=== PATIENT | female | born 1950 | race Caucasian/White ===

== ENCOUNTER 2018-04-18 16:36 | Inpatient (IN) ==
[2018-04-18] MEDS: *HR* OxyCODONE Immed Rel 5 MG TABLET PO PRN (21:48)
[2018-04-19] MEDS ORDERED: Dextrose Gel 15 GM/37.5 ML TUBE PO PRN ×2 (02:06)
[2018-04-19] MEDS ORDERED: *HR* Dextrose 50 % in Water (Syg) 50 ML SYRINGE IVP PRN (02:06)
[2018-04-19] MEDS ORDERED: D5% in Water 1,000 ML IVC PRN (02:06)
[2018-04-19] MEDS: Insulin LISPRO 300 UNITS/3 ML VIAL SQ SCH ×4 (08:47→21:06)
[2018-04-19] MEDS: Venlafaxine XR (24 HR) 150 MG CAP.ER.24H PO SCH (08:48)
[2018-04-19] MEDS: levoFLOXacin 500 MG TABLET PO SCH (08:48)
[2018-04-19] MEDS: (Linagliptin [Tradjenta] 5 MG) PO SCH (08:49)
--- NOTE | 2018-04-19 12:07 | Internal Med History&Physical ---
Date of Encounter: 04/19/18 Time of Encounter: 11:30 Assessment and Plan (1) Pneumonia Current visit: No Status: Acute CT of chest 04/12/2018 showed focal airspace opacification in the right upper lobe and in dependent portion of lower lobes. She was discharged to swing bed on Augmentin but claims she has penicillin allergy. Will change her to Levaquin and give lactobacillus. Qualifiers: Pneumonia type: due to unspecified organism Laterality: unspecified laterality Lung location: lower lobe of lung Qualified Code(s): J18.1 - Lobar pneumonia, unspecified organism (2) Hypothyroidism Current visit: Yes Status: Chronic TSH was normal at 0.844 on 04/12/2018. Continue present dose Synthroid. Qualifiers: Hypothyroidism type: unspecified Qualified Code(s): E03.9 - Hypothyroidism , unspecified (3) Diabetes Current visit: No Status: Chronic Hemoglobin A1c was 8.1% on 04/13/2018. Continue Levemir/Basaglar, Tradjenta, and Accu-Cheks with SSI. Qualifiers: Diabetes mellitus type: type 2 Diabetes mellitus keno terminal operator insulin use: without keno terminal operator use Diabetes mellitus complication status: with unspecified complications Qualified Code(s): E11.8 - Type 2 diabetes mellitus with unspecified complications (4) Rhabdomyolysis Current visit: No Status: Acute Resolving. Will not workup or treatment further. Qualifiers: Rhabdomyolysis type: non-traumatic Qualified Code(s): M62.82 - Rhabdomyolysis (5) HTN (hypertension) Current visit: No Status: Chronic Continue Cozaar. Qualifiers: Hypertension type: essential hypertension Qualified Code(s): I10 - Essential (primary) hypertension (6) Depression Current visit: No Status: Chronic Continue Effexor. Qualifiers: Depression Type: unspecified Qualified Code(s): F32.9 - Major depressive disorder, single episode, unspecified (7) Anemia Current visit: Yes Status: Acute Will order anemia testing in a.m. Qualifiers: Anemia type: unspecified type Qualified Code(s): D64.9 - Anemia, unspecified Internal Medicine - H&P: HPI Chief complaint: Pneumonia Admitted From: Hospital to Hospital Transfer Plans for Post Hospital Care: Home History of present illness: Ms. Rachel is a 67 year old female who was hospitalized at [facility] April 12 after presenting with altered mental status. Etiology was not determined with certainty but she had evidence of sepsis and was treated with a multidrug regimen for pneumonia. Blood and urine cultures returned negative. She was given doxycycline for 5 days after a tick bite was reported. She had evidence of rhabdomyolysis with CK improvement from 7377 on April 14 to 735 on day of discharge. Renal indices remain stable. She was discharged to [facility] swing bed for ongoing care needs prior to discharge home. Past Med Surg Social Fam HX - Past Medical History Medical history: diabetes, hypertension, thyroid disease Additional medical history: TIAs Psychiatric history: anxiety, depression - Past Surgical History Surgical History: appendectomy, cholecystectomy Additional surgical history: tubal, back surgery - Social History Smoking Status: Former smoker Smokeless Tobacco Status: No Alcohol use: occasionally Drug use: opiates, other - Family History Mother History Unknown: Yes Father History Unknown: Yes Internal Medicine - H&P: Meds Losartan [Cozaar] 50 mg PO DAILY 06/09/15 [History] Levothyroxine [Synthroid] 88 mcg PO DAILY 10/26/16 [History] Clopidogrel [Plavix] 75 mg PO DAILY 04/12/18 [History] Insulin ASPART [Novolog Flexpen] 20 units SQ TIDWM 04/12/18 [History] Insulin Glargine,Hum.rec.anlog [Basaglar Kwikpen U-100] 60 unit SQ BID 04/12/18 [History] Linagliptin [Tradjenta] 5 mg PO DAILY 04/12/18 [History] Montelukast [Singulair] 10 mg PO DAILY 04/12/18 [History] Albuterol Sulfate [Albuterol Inhaler] 2 puff IH QID PRN 04/18/18 [History] OxyCODONE Immed Rel [Roxicodone 10 MG] 10 mg PO QID PRN 04/18/18 [History] Venlafaxine XR (24 HR) [Effexor Xr] 150 mg PO QAM cap.er.24h 04/18/18 [Rx] levoFLOXacin [Levaquin] 500 mg PO DAILY 7 Days #7 tablet 04/18/18 [Rx] 3 Allergy/AdvReac Type Severity Reaction Status Date / Time acyclovir Allergy Rash Verified 04/14/18 11:47 sulfamethoxazole Allergy Rash Verified 04/11/18 23:41 [From Bactrim] trimethoprim [From Bactrim] Allergy Rash Verified 04/11/18 23:41 Penicillins AdvReac Palpitation Verified 04/11/18 23:41 s All Systems PM: A 10-system review of systems was performed and is negative for pertinent findings except as documented above in the HPI. Review of systems: Gen.: She states her weight has been stable the past few months Cardiovascular: She has history of hypertension but denies IN heart failure angina DVT or pulmonary embolus. Respiratory: She smoked a rare cigarette for several years but denies chronic lung disease. GI: She has had cholecystectomy. She had multiple colon polyps resected during colonoscopy 2015. She has NAFLD. She denies other disorders of her liver or exocrine pancreas : She has had occasional UTIs in the past. She denies other kidney or bladder disorders Neurologic: She reports history of "mini strokes" leaving her with slight left hand weakness. She denies seizures. Endocrine: She was diagnosed with DM 2 approximately 1989. She has hyperlipidemia and hypothyroidism Hematology/oncology: She had cervical dysplasia treated in 1970s with presumed cure and no recurrence. She had precancerous colon polyps found in 2015 as per above. She had anemia documented during her recent [facility] stay. She denies internal malignancies. Psychiatric: She has anxiety and depression but denies other mental health issues [place] skeletal: She had cervical spine fusion with iliac bone graft several years ago. She has DJD and gout but denies other bone joint or muscle disorders. - Constitutional Vitals: Temp Pulse Resp BP Pulse Ox 98.5 F 75 16 121/64 91 04/19/18 07:00 04/19/18 07:00 04/19/18 07:00 04/19/18 07:00 04/19/18 07:00 Exam: Gen.: She is a well-developed overweight female sitting in a chair at bedside who appears in no acute distress HEENT: Head is atraumatic and normal cephalic. Eyes: EOMI. There is no scleral icterus. Mouth: Mucosa is moist. Neck: There is no thyromegaly or adenopathy noted. Heart: Regular without murmurs gallops or ectopics Lungs: No wheezes or crackles are heard. Abdomen: Soft and nontender. No masses or guarding are noted. Extremities: There is no cyanosis edema or clubbing noted. Dorsalis pedis and posttibial pulses are 1-2 over 2 bilaterally. She has mild DJD changes of her hands. Neurologic: Mental status: She is talkative and a good historian. Cranial nerves: Smile is symmetric. Forehead wrinkles bilaterally. Tongue protrudes midline. EOMI. Motor: There is no pronator drift. Cerebellar: Finger to nose is intact bilaterally. Skin: Warm and dry. She has multiple flat warts on her lower legs and feet.
[2018-04-19] MEDS: *HR* OxyCODONE Immed Rel 5 MG TABLET PO PRN (13:18)
[2018-04-19] MEDS: Lactobacillus 1 EACH CAP.SPRINK PO SCH (21:04)
[2018-04-19] MEDS: Insulin DETEMIR 100 UNIT/ML X5UNITS SQ SCH (21:04)
[2018-04-20] MEDS: *HR* OxyCODONE Immed Rel 5 MG TABLET PO PRN ×3 (00:22→17:12)
[2018-04-20 06:20] LABS: Basophils % 0.5 %; Eosinophils # 0.4 K/mcL (0.0-0.6); Eosinophils % 4.9 %; Hemoglobin 10.6 g/dL (11.5-15.4); Immature Granulocytes % 1.7 % (0-4); Lymphocytes # 2.5 K/mcL (0.6-4.6); Lymphocytes % 30.4 %; Mean Corpuscular HGB Conc 33.1 g/dL (31.6-35.5); Mean Corpuscular Volume 93.6 fL (83.0-100.0); Mean Platelet Volume 10.2 fL (9.4-12.4); Monocytes # 0.9 K/mcL (0.0-1.3); Monocytes % 11.1 %; Neutrophils # 4.3 K/mcL (1.6-8.9); Platelet Count 278 K/mcL (140-400); Red Blood Count 3.42 M/mcL (3.82-4.97); Red Cell Distribution Width 13.3 % (11.5-14.5); Segmented Neutrophils % 51.4 %
[2018-04-20 06:42] LABS: Alanine Aminotransferase 44 Units/L (7-52); Albumin 3.1 g/dL (3.5-5.7); Albumin/Globulin Ratio 1.1 (1.1-2.2); Alkaline Phosphatase 38 Units/L (34-104); Aspartate Amino Transferase 39 Units/L (13-39); BUN/Creatinine Ratio 13 (6-26); Bilirubin,Total 0.4 mg/dL (0.3-1.0); Blood Urea Nitrogen 9 mg/dL (8-23); Calcium 8.4 mg/dL (8.6-10.3); Carbon Dioxide 26 mEq/L (23-29); Chloride 106 mEq/L (98-107); Globulin 2.8 g/dL (2.4-3.5); Glucose 167 mg/dL (70-105); Osmolality,Calculated 290 (280-300); Potassium 3.9 mEq/L (3.5-5.1); Sodium 139 mEq/L (136-145); Total Protein 5.9 g/dL (6.4-8.9); eGFR For African Americans > 60 (> 60); eGFR For Non-African Americans > 60 (> 60)
[2018-04-20 09:23] LABS: % Iron Saturation 19 % (15-50); Iron 44 mcg/dL (50-170); Transferrin 166 mg/dL (203-362)
[2018-04-20 09:27] LABS: Vitamin B12 > 1500 pg/mL (250-1100)
[2018-04-20 09:36] LABS: Ferritin 287 ng/mL (10-120)
[2018-04-20] MEDS: Lactobacillus 1 EACH CAP.SPRINK PO SCH ×2 (09:51→20:50)
[2018-04-20] MEDS: Venlafaxine XR (24 HR) 150 MG CAP.ER.24H PO SCH (09:51)
[2018-04-20] MEDS: levoFLOXacin 500 MG TABLET PO SCH (09:51)
[2018-04-20] MEDS: Insulin LISPRO 300 UNITS/3 ML VIAL SQ SCH ×4 (09:52→20:51)
[2018-04-20] MEDS: (Linagliptin [Tradjenta] 5 MG) PO SCH (09:56)
[2018-04-20] MEDS: Insulin DETEMIR 100 UNIT/ML X5UNITS SQ SCH (20:52)
[2018-04-21] MEDS: Insulin LISPRO 300 UNITS/3 ML VIAL SQ SCH ×4 (08:34→20:20)
[2018-04-21] MEDS: levoFLOXacin 500 MG TABLET PO SCH (08:35)
[2018-04-21] MEDS: Venlafaxine XR (24 HR) 150 MG CAP.ER.24H PO SCH (08:35)
[2018-04-21] MEDS: Lactobacillus 1 EACH CAP.SPRINK PO SCH ×2 (08:35→20:18)
[2018-04-21] MEDS: (Linagliptin [Tradjenta] 5 MG) PO SCH (08:37)
[2018-04-21] MEDS: *HR* OxyCODONE Immed Rel 5 MG TABLET PO PRN ×2 (08:49→20:18)
--- NOTE | 2018-04-21 20:07 | Internal Med Progress Note ---
Date of Encounter: 04/21/18 Time of Encounter: 20:00 - Assessment and plan (1) Right upper lobe pneumonia Current Visit: Yes Status: Acute Assessment and plan: Finished a course of Levaquin Qualifiers: Pneumonia type: due to unspecified organism Qualified Code(s): J18.1 - Lobar pneumonia, unspecified organism (2) Unsteady gait Current Visit: Yes Status: Acute Assessment and plan: Continue rehabilitation (3) DM type 2 (diabetes mellitus, type 2) Current Visit: Yes Status: Acute Assessment and plan: Stop using diet products continue the basaglar, Tradjenta, Accu-Cheks with sliding scale Qualifiers: Diabetes mellitus residential insulin use: without residential use Diabetes mellitus complication status: with unspecified complications Qualified Code(s) : E11.8 - Type 2 diabetes mellitus with unspecified complications (4) Depression Current Visit: Yes Status: Chronic Assessment and plan: Improving continue Effexor Qualifiers: Depression Type: unspecified Qualified Code(s): F32.9 - Major depressive disorder, single episode, unspecified (5) Anemia Current Visit: Yes Status: Acute Assessment and plan: B12 was. In 1500 she should stop any supplement her ferritin is elevated to 87 so she can stop iron supplement Qualifiers: Anemia type: unspecified type Qualified Code(s): D64.9 - Anemia, unspecified (6) HTN (hypertension) Current Visit: Yes Status: Chronic Assessment and plan: Stable continue Cozaar Qualifiers: Hypertension type: essential hypertension Qualified Code(s): I10 - Essential (primary) hypertension - Time Spent With Patient Greater than 35 minutes - Subjective Interval history: 67-year-old female was admitted to swing bed after being diagnosed with pneumonia with right upper lobe. She apparently fell laid on the floor for several hours and reports feeling unsteady gait. He is feeling a little stronger now that she has been here at the rehabilitation. She has a history of hypothyroidism being 2 hypertension depression anemia history of colonic polyps, NAFLD, history of CVA with left lower extremity weakness hyperlipidemia and gout polyarthritis, flat warts legs and an aneurysm in her brain that she is having followed up on. She drinks reports drinking about 1 to couple quarts of water a day acute diet coke about 1 ball day she reports down from 5 bottles a day. Discussed how they take sugar still makes diabetes hard to control and that she increase her risk of dementia caffeine the diuretic which can be due to dehydration also became cause in her ear issues. Her blood work came back hemoglobin 10.6 blood sugar 167, ferritin 287, albumin 3.1, B12 greater than 1500 she is on supplement I recommend she stop the folate is 21 and blood sugars range from 170-236. Answer questions addressed her concerns - Constitutional Vitals: Temp Pulse Resp BP Pulse Ox 98.3 F 87 16 110/65 92 04/21/18 19:04/21/18 19:09 04/21/18 19:09 04/21/18 19:04/21/18 19:09 Exam: General: Alert and oriented, no acute distress Lungs: Clear to auscultation bilaterally without wheezing or crackles Heart: Regular rate and rythms without murmer or rubs Abdomen: Soft, nontender, Extremities: no edema, redness, but left lower extremity slightly weaker than right Skin show flat warts on her feet Internal Medicine: Result - Labs CBC & Chem 7: 04/20/18 05:46 04/20/18 05:46 Consult Discharge Plan - Plan Referrals: Roque John M.D. [Primary Care Provider] - 1 week
[2018-04-21] MEDS: Insulin DETEMIR 100 UNIT/ML X5UNITS SQ SCH (20:18)
[2018-04-22] MEDS: Lactobacillus 1 EACH CAP.SPRINK PO SCH ×2 (08:05→21:03)
[2018-04-22] MEDS: *HR* OxyCODONE Immed Rel 5 MG TABLET PO PRN ×2 (08:06→18:52)
[2018-04-22] MEDS: (Linagliptin [Tradjenta] 5 MG) PO SCH (08:06)
[2018-04-22] MEDS: Venlafaxine XR (24 HR) 150 MG CAP.ER.24H PO SCH (08:06)
[2018-04-22] MEDS: levoFLOXacin 500 MG TABLET PO SCH (08:06)
[2018-04-22] MEDS: Insulin LISPRO 300 UNITS/3 ML VIAL SQ SCH ×4 (08:16→21:03)
[2018-04-22] MEDS: Insulin DETEMIR 100 UNIT/ML X5UNITS SQ SCH (21:03)
[2018-04-23] MEDS: *HR* OxyCODONE Immed Rel 5 MG TABLET PO PRN ×2 (00:37→09:06)
[2018-04-23] MEDS: Insulin LISPRO 300 UNITS/3 ML VIAL SQ SCH ×4 (07:42→20:47)
[2018-04-23] MEDS: Venlafaxine XR (24 HR) 150 MG CAP.ER.24H PO SCH (09:02)
[2018-04-23] MEDS: levoFLOXacin 500 MG TABLET PO SCH (09:02)
[2018-04-23] MEDS: Lactobacillus 1 EACH CAP.SPRINK PO SCH (09:03)
[2018-04-23] MEDS: (Linagliptin [Tradjenta] 5 MG) PO SCH (09:03)
--- NOTE | 2018-04-23 15:17 | Internal Med Progress Note ---
Date of Encounter: 04/23/18 Time of Encounter: 15:10 - Assessment and plan (1) Pneumonia Current Visit: No Status: Acute Assessment and plan: April 23. Will discontinue Levaquin and lactobacillus. Qualifiers: Pneumonia type: due to unspecified organism Laterality: unspecified laterality Lung location: lower lobe of lung Qualified Code(s): J18.1 - Lobar pneumonia, unspecified organism (2) Hypothyroidism Current Visit: Yes Status: Chronic Assessment and plan: April 23. TSH was normal at 0.844 on 04/12/2018. Continue present dose Synthroid. Qualifiers: Hypothyroidism type: unspecified Qualified Code(s): E03.9 - Hypothyroidism , unspecified (3) Diabetes Current Visit: No Status: Chronic Assessment and plan: April 23. Hemoglobin A1c was 8.1% on 04/13/2018. Continue Levemir/basaglar, Tradjenta, and Accu-Cheks with SSI. Qualifiers: Diabetes mellitus type: type 2 Diabetes mellitus custodial insulin use: without joint terminal attack controller use Diabetes mellitus complication status: with unspecified complications Qualified Code(s): E11.8 - Type 2 diabetes mellitus with unspecified complications (4) Rhabdomyolysis Current Visit: No Status: Acute Assessment and plan: April 23. Resolved. Will not workup for treat further. Qualifiers: Rhabdomyolysis type: non-traumatic Qualified Code(s): M62.82 - Rhabdomyolysis (5) HTN (hypertension) Current Visit: Yes Status: Chronic Assessment and plan: April 23. Blood pressure low. Discontinue Cozaar. Qualifiers: Hypertension type: essential hypertension Qualified Code(s): I10 - Essential (primary) hypertension (6) Depression Current Visit: Yes Status: Chronic Assessment and plan: April 23. Continue Effexor Qualifiers: Depression Type: unspecified Qualified Code(s): F32.9 - Major depressive disorder, single episode, unspecified (7) Anemia Current Visit: Yes Status: Acute Assessment and plan: April 23. Anemia testing showed iron 44, transferrin saturation 19, transferrin 166, ferritin 287, B12 > 1500, and folate 21. We will continue to monitor. Qualifiers: Anemia type: unspecified type Qualified Code(s): D64.9 - Anemia, unspecified (8) Left foot pain Current Visit: Yes Status: Acute Assessment and plan: April 23. No obvious injury. Will order scheduled Naprosyn for 2-3 days and monitor. - Subjective Interval history: April 23. She complains of pain in her left foot worsened on standing. She states her blood pressure is frequently low at home and she will go several days to weeks without taking medication. - Constitutional Vitals: Temp Pulse Resp BP Pulse Ox 98.2 F 84 16 91/56 95 04/23/18 13:25 04/23/18 13:25 04/23/18 13:25 04/23/18 13:25 04/23/18 13:25 Exam: She is resting comfortably in bed. She has pain on deep palpation in the lateral and plantar lateral left foot. There is no pain on extension of the toes at the MTP joints. I reviewed her medications and lab results. Internal Medicine: Result - Labs CBC & Chem 7: 04/20/18 05:46 04/20/18 05:46 Consult Discharge Plan - Plan Referrals: Roque John M.D. [Primary Care Provider] - 1 week
[2018-04-23] MEDS ORDERED: Insulin DETEMIR 100 UNIT/ML per UNIT SQ ONE (20:46)
[2018-04-23] MEDS: Insulin DETEMIR 100 UNIT/ML X5UNITS SQ SCH (20:50)
[2018-04-24 06:57] VITALS: BP 93/57
[2018-04-24] MEDS: (Linagliptin [Tradjenta] 5 MG) PO SCH (07:37)
[2018-04-24] MEDS: Insulin LISPRO 300 UNITS/3 ML VIAL SQ SCH ×2 (07:53→11:47)
[2018-04-24] MEDS: Venlafaxine XR (24 HR) 150 MG CAP.ER.24H PO SCH (07:56)
[2018-04-24] MEDS: *HR* OxyCODONE Immed Rel 5 MG TABLET PO PRN (11:48)
--- NOTE | 2018-04-24 11:54 | Discharge Summary ---
Date of Encounter: 04/24/18 Time of Encounter: 11:40 - Discharge Diagnosis (1) Pneumonia Priority: Primary Status: Acute Qualifiers: Pneumonia type: due to unspecified organism Laterality: unspecified laterality Lung location: lower lobe of lung Qualified Code(s): J18.1 - Lobar pneumonia, unspecified organism (2) Hypothyroidism Priority: Secondary Status: Chronic Qualifiers: Hypothyroidism type: unspecified Qualified Code(s): E03.9 - Hypothyroidism , unspecified (3) Diabetes Priority: Secondary Status: Chronic Qualifiers: Diabetes mellitus type: type 2 Diabetes mellitus terminal gauger insulin use: without terminal gauger use Diabetes mellitus complication status: with unspecified complications Qualified Code(s): E11.8 - Type 2 diabetes mellitus with unspecified complications (4) Rhabdomyolysis Priority: Secondary Status: Acute Qualifiers: Rhabdomyolysis type: non-traumatic Qualified Code(s): M62.82 - Rhabdomyolysis (5) HTN (hypertension) Priority: Secondary Status: Chronic Qualifiers: Hypertension type: essential hypertension Qualified Code(s): I10 - Essential (primary) hypertension (6) Depression Priority: Secondary Status: Chronic Qualifiers: Depression Type: unspecified Qualified Code(s): F32.9 - Major depressive disorder, single episode, unspecified (7) Anemia Priority: Secondary Status: Acute Qualifiers: Anemia type: unspecified type Qualified Code(s): D64.9 - Anemia, unspecified (8) Left foot pain Priority: Secondary Status: Acute Hospital course: Ms. Rachel is a 67 year old female who was hospitalized at [facility] April 12 after presenting with altered mental status. Etiology was not determined with certainty but she had evidence of sepsis and was treated with a multidrug regimen for pneumonia. Blood and urine cultures returned negative. She was given doxycycline for 5 days after a tick bite was reported. She had evidence of rhabdomyolysis with CK improvement from 7377 on April 14 to 735 on day of discharge. Renal indices remain stable. She was discharged to [facility] swing bed for ongoing care needs prior to discharge home. Initial orders were written by the discharging physician at [facility]. I saw her on April 19 and performed the swing bed history and physical. She continued oral antibiotic through April 23. She remained afebrile. No further workup is anticipated at this time. Her PCP can monitor. TSH returned normal at 0.844 on 04/12/2018. Synthroid was continued at previous dose. Hemoglobin A1c returned slightly above desirable range at 8.1% on 04/13/2018. Her PCP can adjust diabetic medications as needed. She had borderline hypotension so Cozaar was discontinued. She will remain off this at discharge. Anemia testing showed iron 44, transferrin saturation 19%, transferrin 166, ferritin 287, B12> 1500, and folate 21.0. Hemoglobin was stable at 10.6 on . Her PCP can monitor this. On April 24 she felt stable for discharge home. She will follow with her PCP Dr. John within 1 week. - Time Spent with Patient Total time spent providing and/or coordinating discharge services: - Discharge Medications Home Medications: Levothyroxine [Synthroid] 88 mcg PO DAILY 10/26/16 [History] Clopidogrel [Plavix] 75 mg PO DAILY 04/12/18 [History] Insulin ASPART [Novolog Flexpen] 20 units SQ TIDWM 04/12/18 [History] Insulin Glargine,Hum.rec.anlog [Basaglar Kwikpen U-100] 60 unit SQ BID 04/12/18 [History] Linagliptin [Tradjenta] 5 mg PO DAILY 04/12/18 [History] Montelukast [Singulair] 10 mg PO DAILY 04/12/18 [History] Albuterol Sulfate [Albuterol Inhaler] 2 puff IH QID PRN 04/18/18 [History] OxyCODONE Immed Rel [Roxicodone 10 MG] 10 mg PO QID PRN 04/18/18 [History] Venlafaxine XR (24 HR) [Effexor Xr] 150 mg PO QAM cap.er.24h 04/18/18 [Rx] Allergies/Adverse Reactions: 3 Allergy/AdvReac Type Severity Reaction Status Date / Time acyclovir Allergy Rash Verified 04/14/18 11:47 sulfamethoxazole Allergy Rash Verified 04/11/18 23:41 [From Bactrim] trimethoprim [From Bactrim] Allergy Rash Verified 04/11/18 23:41 Penicillins AdvReac Palpitation Verified 04/11/18 23:41 s Date of admission: 04/18/18 20:34 Primary care physician: Roque John M.D. Consults: 04/18/18 21:09 Consult to Occupational Therapy [CONS] Routine Comment: weakness Reason for Consult: weakness Does patient have active BEDREST order?: No Is patient medically & hemodynamically stable?: No Consult to Physical Therapy [CONS] Routine Comment: weakness Reason for Consult: weakness Does patient have active BEDREST order?: No Is patient medically & hemodynamically stable?: No Consult to Ict Programmer [CONS] Routine Reason for SW Consult: discharge planning - Constitutional Vitals: Temp Pulse Resp BP Pulse Ox 97.8 F 77 16 93/57 91 04/24/18 06:54 04/24/18 06:54 04/24/18 06:54 04/24/18 06:54 04/24/18 06:54 - Patient Status Disposition: Home, Self-Care Overall status at discharge: patient is progressing back to baseline - Discharge Instructions Follow Up With: Roque John M.D. [Primary Care Provider] - 1 week - Diet and Activity Activity: resume usual activities as tolerated Diet: advance to your usual diet
== END 2018-04-24 14:10 | disposition home or self-care (01) | DRG 194 ==
LOC: INPPIK 20:34
PROVIDERS: ADMIT Internal Medicine; ATTEND Internal Medicine